=== PATIENT | male | born 1970 | race Caucasian/White ===

== ENCOUNTER 2020-03-19 06:49 | Day surgery (SDC) | payer OTHER ==
[~2020-03-19] VITALS: Ht 177.8 cm; Wt 115.5 kg
[~2020-03-19 06:49] MED LIST: BENADRYL25 MG PO; DICLOFENAC SODI75 MG PO; FISH OIL 1,0001 EAC7 PO; GLUCOSAMINE SU750 MG PO; METOPROLOL SUCC50 MG PO; OMEPRAZOLE20 MG PO; TYLENOL325 MG PO; VITAMIN D325 MC4 PO; ZESTRIL20 MG PO
--- NOTE | 2020-03-19 08:40 | NUR ---
03/19/20 0840 Swati Steele 0835 PATIENT ARRIVES TO PACU AWAKE BUT DROWSY. RESP EVEN AND UNLABORED, OXYGEN TURNED OFF. PATIENT DENIES PAIN OR NAUSEA. 0840 PATIENT REPOSITIONS SELF TO BACK. HOB ELEVATED. DRINKING JUICE.
--- NOTE | 2020-03-20 06:29 | OR ---
[facility] [address], [place] [address] Signed DATE OF OPERATION: 03/19/2020 SURGEON: Jeanette Chen MD PREOPERATIVE DIAGNOSES: 1. Personal history of colonic polyps in 2015 (age 44). 2. Father with colon cancer in his late 60s. POSTOPERATIVE DIAGNOSES: 1. 5 mm polyp at 7 cm. 2. Minimal sigmoid diverticulosis. 3. Minimal internal hemorrhoids. PROCEDURE: Colonoscopy with hot biopsy. ESTIMATED BLOOD LOSS: None. INDICATIONS: Juan is a 49-year-old gentleman, asked to see me for followup colonoscopy. He came in 2014 at age 44 for his initial colonoscopy. At that time, he had a change in bowel habits with constipation and bloating. He had a 5 mm adenomatous polyp taken of the cecum. He also has a fairly prominent ileocecal valve. He told me his father was diagnosed with colon cancer in his late 60s and sounds like he from that colon cancer. Juan really has no lower GI complaints currently. He does have some screws in that right arm from 2018. I had met with Juan in the office and I gave him a pamphlet on colonoscopy and we looked at that together along with the risks including, but not limited to gas bloating, crampy abdominal pain, bleeding, perforation requiring surgery, and missed diagnosis. We also discussed the need for IV conscious sedation, he had expressed understanding and wished to proceed. PROCEDURE NOTE: Juan was taken into our endoscopy suite and placed in the left lateral decubitus position. He was given IV sedation with 7 mg of Versed and 125 mcg of fentanyl. A digital rectal exam was performed and this was unremarkable. The adult colonoscope was introduced and advanced under direct visualization of camera without difficulty into the cecum. His prep was quite good. We could easily see the appendiceal orifice and the ileocecal valve. Again, he has a very prominent ileocecal valve. The scope was slowly withdrawn. We saw just a few diverticula in the sigmoid colon. They were fairly small Electronically Signed By: JEANETTE CHEN MD 03/20/20 0629 PATIENT NAME: JUAN VELASQUEZ OPERATIVE REPORT DATE OF : 66 REPORT #: [id number] PHYSICIAN: JEANETTE CHEN MD PCP: RC METZ MD REPORT IS CONFIDENTIAL AND NOT TO BE RELEASED WITHOUT AUTHORIZATION [facility] [address], [place] [address] Signed in size, few in number, and scattered about. Down in the rectum, he had just one small polyp easily removed with a hot biopsy forceps. Upon retroflexion of scope, he does have a small internal hemorrhoid columns. After this, the gas was suctioned out and the colonoscope removed. Juan tolerated his procedure quite well. RECOMMENDATIONS: I will see Emanuel back in my office in 7 to 14 days to review his results. Jeanette Chen MD ALB/MODL /[id number] cc: MD Jeanette Azar MD Copies: RC METZ MD, ANDREW L MD ~ Electronically Signed By: JEANETTE CHEN MD 03/20/20 0629 PATIENT NAME: JUAN VELASQUEZ OPERATIVE REPORT DATE OF : 66 REPORT #: [id number] PHYSICIAN: JEANETTE CHEN MD PCP: RC METZ MD REPORT IS CONFIDENTIAL AND NOT TO BE RELEASED WITHOUT AUTHORIZATION
--- NOTE | 2020-03-20 14:54 | PATH ---
[facility] [address], [place] [address] Signed SPECIMEN(S): A RECTAL POLYP AT 7 CM SPECIMEN SOURCE: A. RECTAL POLYP AT 7 CM CLINICAL HISTORY: Family history of colon CA, bowel changes, history of polyp. MICROSCOPIC DESCRIPTION: Histologic sections of all submitted blocks are examined by light microscopy. These findings, together with the gross examination, support the pathologic diagnosis. FINAL PATHOLOGIC DIAGNOSIS: Rectum, polyp at 7 cm, polypectomy: - Severely cauterized colonic mucosa with no identifiable histopathologic abnormality. - See Comment. COMMENT: Multiple additional deeper levels were examined. The cautery artifact prevents evaluation for hyperplastic changes. If clinical concern remains, a repeat biopsy is recommended. NAL:cml:C2NR GROSS DESCRIPTION: The specimen, labeled "JN, rectal polyp at 7 cm," is received in formalin and consists of one viramontes soft tissue fragment that measures 0.2 cm in greatest dimension. The specimen is entirely submitted in cassette (A1). JS (under the direct supervision of a pathologist) The Gross Description was prepared using a voice recognition system. The report was reviewed for accuracy; however, sound-alike word errors, addition and/or deletions may occur. If there is any question about this report, please contact Client Services. PERFORMING LABORATORY: The technical component was performed by [facility], [address] [place] [id number] (Production Machine Computer Operator: Shawna Carrasquillo MD; CLIA# [id number]). [facility] [place] [address] [address] (CLIA# [id number]). PATIENT NAME: JUAN VELASQUEZ PATHOLOGY DATE OF : 66 REPORT #: [id number] PHYSICIAN: DONALDYTE PATHOLOGY PCP: RC METZ MD REPORT IS CONFIDENTIAL AND NOT TO BE RELEASED WITHOUT AUTHORIZATION [facility] [address] [place] [id number] Signed Diagnostician: Aleshia Jeronimo MD Pathologist Electronically Signed 03/20/2020 Copies: ~ PATIENT NAME: JUAN VELASQUEZ PATHOLOGY DATE OF : 66 REPORT #: [id number] PHYSICIAN: CYN PATHOLOGY PCP: RC METZ MD REPORT IS CONFIDENTIAL AND NOT TO BE RELEASED WITHOUT AUTHORIZATION
== END 2020-03-19 09:45 | disposition home or self-care (01) ==
LOC: DS 06:49 → OPS 06:49 → DS 08:15 → OPS 09:45
PROVIDERS: ATTEND Colon & Rectal Surgery
PROC: 0DBP8ZZ Excision of Rectum, Via Natural or Artificial Opening Endoscopic (ICD-10-PCS; principal; 2020-03-19 08:15)
DX: K62.1 Rectal polyp (principal); K64.8 Other hemorrhoids; K57.30 Diverticulosis of large intestine without perforation or abscess without bleeding; I10 Essential (primary) hypertension; K21.9 Gastro-esophageal reflux disease without esophagitis; E78.5 Hyperlipidemia, unspecified; E66.9 Obesity, unspecified; Z68.39 Body mass index [BMI] 39.0-39.9, adult; Z86.010 Personal history of colon polyps; Z80.0 Family history of malignant neoplasm of digestive organs; Z79.899 Other long term (current) drug therapy
CPT/HCPCS: 99153; G0500; J2250; J3010